=== PATIENT | male | born 1995 | race Caucasian/White ===

== ENCOUNTER → 2020-03-10 | Outpatient (CLI) | payer BC | LOC: HYPER 14:14 | DX: S51.812A Laceration without foreign body of left forearm, initial encounter (principal); S91.112A Laceration without foreign body of left great toe without damage to nail, initial encounter; S61.314A Laceration without foreign body of right ring finger with damage to nail, initial encounter; S61.412A Laceration without foreign body of left hand, initial encounter; S81.812A Laceration without foreign body, left lower leg, initial encounter; S81.811A Laceration without foreign body, right lower leg, initial encounter; S31.109A Unspecified open wound of abdominal wall, unspecified quadrant without penetration into peritoneal cavity, initial encounter; W54.0XXA Bitten by dog, initial encounter; Y93.89 Activity, other specified; Y92.89 Other specified places as the place of occurrence of the external cause; Y99.8 Other external cause status ==

== ENCOUNTER → 2020-03-21 | Outpatient (CLI) | payer BC | LOC: HYPER 08:03 | PROVIDERS: ATTEND Emergency Medicine Emergency Medical Services | DX: S51.812D Laceration without foreign body of left forearm, subsequent encounter (principal); S91.112D Laceration without foreign body of left great toe without damage to nail, subsequent encounter; S61.314D Laceration without foreign body of right ring finger with damage to nail, subsequent encounter; S61.412D Laceration without foreign body of left hand, subsequent encounter; S81.812D Laceration without foreign body, left lower leg, subsequent encounter; S81.811D Laceration without foreign body, right lower leg, subsequent encounter; S61.452D Open bite of left hand, subsequent encounter; S31.159D Open bite of abdominal wall, unspecified quadrant without penetration into peritoneal cavity, subsequent encounter; W54.0XXD Bitten by dog, subsequent encounter ==